=== PATIENT | male | born 1970 ===

== ENCOUNTER 2021-09-22 23:05 | Emergency (ER) | payer BC ==
[2021-09-22] MEDS ORDERED: ASPIRIN 81 MG CHEWABLE TABLET ONE (23:47)
[2021-09-23 00:52] LABS: Absolute Lymphocytes (CBC) 1.9 K/uL (0.7-4.9); Lymphocytes % 31.2 % (15.3-44.8); MPV 8.7 fL (7.6-11.3); RBC Red Blood Cell Count 4.47 M/uL (4.33-5.43)
[2021-09-23 01:13] LABS: Troponin High Sensitivity 3.7 pg/mL (<58.9)
[2021-09-23 01:15] LABS: Magnesium 2.2 mg/dL (1.8-2.4); Potassium 3.9 mmol/L (3.5-5.1)
--- NOTE | 2021-09-23 02:04 | EDPHYS ---
Physician Documentation [facility] Name: Jayson Valderrama Age: 50 yrs Sex: Male : 1970 Arrival Date: 09/22/2021 Time: 23:11 Bed 4 Private MD: ED Physician Woodrow Pizarro HPI: 09/23 00:37 This 50 yrs old Male presents to ER via Ambulatory with complaints of Chest Pain. ms3 00:37 The patient or guardian reports chest pain that is located primarily in the substernal ms3 area. Onset: 1 week(s) ago. The pain does not radiate. Associated signs and symptoms: Pertinent negatives: abdominal pain, nausea, vomiting. The chest pain is described as a heaviness. Modifying factors: The symptoms are alleviated by nothing. the symptoms are aggravated by nothing. Severity of pain: At its worst the pain was mild in the emergency department the pain is unchanged. 50-year-old male with no past medical history presents for chest heaviness that began 1 week prior to arrival. Patient states his pain is a 1/10 and described as heaviness. Patient denies nausea, vomiting, sweating. Patient denies alleviating or inciting factors.. Historical: - Allergies: 09/22 23:22 No Known Allergies; ld1 - Home Meds: 23:22 Prilosec 20 mg Oral cpDR 1 cap once daily [Active]; ld1 - PMHx: 23:22 None; ld1 - PSHx: 23:22 None; ld1 - Immunization history:: Adult Immunizations up to date, Client reports receiving the 2nd dose of the Covid vaccine. - Social history:: Smoking status: Patient reports use of chewing tobacco. Patient uses alcohol, only on a social basis. ROS: 09/23 00:37 Constitutional: Negative for fever, and chills. Eyes: Negative for injury, pain, ms3 redness, and discharge, ENT: Negative for injury, pain, and discharge, Respiratory: Negative for shortness of breath, cough, wheezing, and pleuritic chest pain, Abdomen/GI: Negative for abdominal pain, nausea, vomiting, diarrhea, and constipation, Skin: Negative for injury, rash, and discoloration. Cardiovascular: Positive for chest pain. All other systems are negative. Exam: 09/22 23:26 ECG was reviewed by the Attending Physician. ms3 03/21 00:37 Constitutional: This is a well developed, well nourished patient who is awake, alert, ms3 and in no acute distress. Head/Face: Normocephalic, atraumatic. Eyes: Pupils equal round and reactive to light, extra-ocular motions intact. Lids and lashes normal. Conjunctiva and sclera are non-icteric and not injected. Periorbital areas with no swelling, redness, or edema. Neck: Trachea midline, no cervical lymphadenopathy. Supple, full range of motion without nuchal rigidity, or vertebral point tenderness. No Meningismus. Chest/axilla: Normal chest wall appearance and motion. Nontender with no deformity. Cardiovascular: Regular rate and rhythm with a normal S1 and S2. No gallops, murmurs, or rubs. Normal PMI, no JVD. No pulse deficits. Respiratory: Lungs have equal breath sounds bilaterally, clear to auscultation and percussion. No rales, rhonchi or wheezes noted. No increased work of breathing, no retractions or nasal flaring. Abdomen/GI: Soft, non-tender, with normal bowel sounds. No distension or tympany. No guarding or rebound. No evidence of tenderness throughout. Skin: Warm, dry with normal turgor. Normal color with no rashes, no lesions, and no evidence of cellulitis. MS/ Extremity: Pulses equal, no cyanosis. Neurovascular intact. Full, normal range of motion. Psych: Awake, alert, with orientation to person, place and time. Behavior, mood, and affect are within normal limits. Vital Signs: 09/22 23:21 BP 123 / 87; Pulse 71; Resp 18; Temp 97.9(TE); Pulse Ox 97% on R/A; Weight 115.67 kg; ld1 Height 6 ft. 1 in. (185.42 cm); Pain 1/10; 23:55 BP 138 / 92; Pulse 78; Resp 16; Pulse Ox 99% on R/A; tw5 09/23 02:23 BP 146 / 86; Pulse 64; Resp 17; Pulse Ox 100% on R/A; Pain 0/10; tw5 09/22 23:21 Body Mass Index 33.64 (115.67 kg, 185.42 cm) ld1 MDM: 00:12 Patient medically screened. ms3 00:37 Differential diagnosis: abnormal EKG, acute myocardial infarction, coronary artery ms3 disease. 02:04 HEART Score: History: Slightly Suspicious (0), ECG: Normal (0), Age: > 45 and < 65 ms3 years (1), Risk Factors: No Risk Factors Known (0), Troponin: < or = 1 x Normal Limit (0), Total Score = 1. The patient was given aspirin in the Emergency Department. Data reviewed: vital signs, nurses notes, lab test result(s), EKG, radiologic studies. 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 09/22 23:38 Order name: Basic Metabolic Panel ms3 09/22 23:38 Order name: CBC with Diff ms3 09/22 23:38 Order name: Magnesium ms3 09/22 23:38 Order name: Troponin HS ms3 09/22 23:38 Order name: Basic Metabolic Panel; Complete Time: 01:36 EDMS 09/22 23:38 Order name: CBC with Automated Diff; Complete Time: 01:36 EDMS 09/22 23:25 Order name: EKG; Complete Time: 23:25 ld1 09/22 23:25 Order name: EKG - Nurse/Tech; Complete Time: 23:25 ld1 09/22 23:38 Order name: XRAY Chest (1 view) ms3 09/22 23:38 Order name: Cardiac monitoring; Complete Time: 00:07 ms3 09/22 23:39 Order name: Magnesium; Complete Time: 01:36 EDMS 09/22 23:39 Order name: Troponin High Sensitivity; Complete Time: 01:36 EDMS 09/22 23:38 Order name: IV Saline Lock; Complete Time: 00:07 ms3 09/22 23:38 Order name: Labs collected and sent; Complete Time: 00:06 ms3 09/22 23:38 Order name: O2 Per Protocol; Complete Time: 00:06 ms3 09/22 23:38 Order name: O2 Sat Monitoring; Complete Time: 00:07 ms3 EC/20 23:26 Rate is 68 beats/min. Rhythm is regular. QRS [place] is Normal. [place] interval is normal. ms3 Clinical impression: NSR with supraventricular complexes. Interpreted by me. Administered Medications: 23:54 Not Given (Other Intervention Used): Aspirin Chewable Tablet 324 mg PO once; 81 mg tw5 tablets x 4 09/23 00:01 Drug: Aspirin Chewable Tablet 81 mg Route: PO; tw5 02:17 Follow up: Response: No adverse reaction tw5 Disposition Summary: 09/23/21 02:03 Discharge Ordered Location: Home ms3 Problem: new ms3 Condition: Stable ms3 Diagnosis - Chest pain, unspecified ms3 - renal insufficiency ms3 - Elevated blood-pressure reading, without diagnosis of hypertension ms3 Followup: ms3 - With: Carlos Jernigan MD - When: 1 - 2 days - Reason: Re-evaluation by your physician Discharge Instructions: - Discharge Summary Sheet ms3 - Nonspecific Chest Pain, Adult ms3 Forms: - Medication Reconciliation Form ms3 - Thank You Letter ms3 - Antibiotic Education ms3 - Prescription Opioid Use ms3 Signatures: Dispatcher [employer] EDMS Woodrow Pizarro DO DO ms3 Elizabeth Martinez RN RN ld1 Lashonda Shook tw5 Corrections: (The following items were deleted from the chart) 09/22 23:24 23:22 Home Meds: None; ld1 ld1
--- NOTE | 2021-09-23 02:04 | ER ---
Nurse's Notes [facility] Name: Jayson Valderrama Age: 50 yrs Sex: Male : 1970 Arrival Date: 09/22/2021 Time: 23:11 Bed 4 Private MD: Diagnosis: Chest pain, unspecified;renal insufficiency;Elevated blood-pressure reading, without diagnosis of hypertension Presentation: 09/22 23:21 Chief complaint: Patient states: Small chest pains for about a week. Tonight I began ld1 feeling full, pressure, tightness in my chest. Coronavirus screen: At this time, the client does not indicate any symptoms associated with coronavirus-19. Ebola Screen: No symptoms or risks identified at this time. Initial Sepsis Screen: Does the patient meet any 2 criteria? No. Patient's initial sepsis screen is negative. Does the patient have a suspected source of infection? No. Patient's initial sepsis screen is negative. Risk Assessment: Do you want to hurt yourself or someone else? Patient reports no desire to harm self or others. Onset of symptoms was September 22, 2021. 23:21 Method Of Arrival: Ambulatory ld1 23:21 Acuity: YAMINI 3 ld1 Triage Assessment: 23:24 General: Appears in no apparent distress. comfortable, Behavior is calm, cooperative, ld1 appropriate for age. Pain: Complains of pain in chest Pain does not radiate. Pain currently is 1 out of 10 on a pain scale. Quality of pain is described as tingling. Neuro: Level of Consciousness is awake, alert, obeys commands, Oriented to person, place, time, situation. Cardiovascular: Capillary refill < 3 seconds Patient's skin is warm and dry. Respiratory: Airway is patent Respiratory effort is even, unlabored. GI: Abdomen is flat, non-distended. : No signs and/or symptoms were reported regarding the genitourinary system. Derm: No signs and/or symptoms reported regarding the dermatologic system. Musculoskeletal: No signs and/or symptoms reported regarding the musculoskeletal system. Historical: - Allergies: 23:22 No Known Allergies; ld1 - Home Meds: 23:22 Prilosec 20 mg Oral cpDR 1 cap once daily [Active]; ld1 - PMHx: 23:22 None; ld1 - PSHx: 23:22 None; ld1 - Immunization history:: Adult Immunizations up to date, Client reports receiving the 2nd dose of the Covid vaccine. - Social history:: Smoking status: Patient reports use of chewing tobacco. Patient uses alcohol, only on a social basis. Screenin:55 Abuse screen: Denies threats or abuse. Denies injuries from another. Nutritional tw5 screening: No deficits noted. Tuberculosis screening: No symptoms or risk factors identified. Fall Risk None identified. Assessment: 23:52 General: Reports "I was having chest pain, I already took three baby aspirins before tw5 coming here. I heard that is what you are suppose to do if you think you are having a heart attack.". 23:55 General: Reports "For the past year I just haven't felt myself. When I get done with my tw5 workout I just dont feel as good as I used to. For the past week I have been having this heaviness in my chest with some pains. Another thing is a I feel a tingling in my hands.". Cardiovascular:. 09/23 02:23 Pain: Denies pain. tw5 02:24 Pain: Pain began 30 min ago. tw5 Vital Signs: 09/22 23:21 BP 123 / 87; Pulse 71; Resp 18; Temp 97.9(TE); Pulse Ox 97% on R/A; Weight 115.67 kg; ld1 Height 6 ft. 1 in. (185.42 cm); Pain 1/10; 23:55 BP 138 / 92; Pulse 78; Resp 16; Pulse Ox 99% on R/A; tw5 09/23 02:23 BP 146 / 86; Pulse 64; Resp 17; Pulse Ox 100% on R/A; Pain 0/10; tw5 09/22 23:21 Body Mass Index 33.64 (115.67 kg, 185.42 cm) ld1 ED Course: 09/22 23:11 Patient arrived in ED. es 23:22 Triage completed. ld1 23:24 Arm band placed on right wrist. ld1 23:37 Woodrow Pizarro DO is Attending Physician. ms3 23:38 Anderson Harvey, RN is Primary Nurse. as6 23:55 Patient has correct armband on for positive identification. Placed in gown. Bed in low tw5 position. Call light in reach. Side rails up X 1. monitoring analyst on. Pulse ox on. NIBP on. Door closed. Noise minimized. Moved to private room. Verbal reassurance given. 09/23 00:07 Awaiting lab results. tw 00:07 Troponin HS Sent. 00:07 Magnesium Sent. tw 00: CBC with Diff Sent. 00:07 Basic Metabolic Panel Sent. 00:07 Troponin High Sensitivity Sent. : CBC with Automated Diff Sent. 00: Magnesium Sent. 00: Basic Metabolic Panel Sent. 00:07 Initial lab(s) drawn, by me, sent to lab. Inserted saline lock: 20 gauge in right tw5 antecubital area, using aseptic technique. Blood collected. Patient maintains SpO2 saturation greater than 95% on room air. 00:32 Lab(s) recollected, by me, sent to lab. tw 00:38 XRAY Chest (1 view) In Process Unspecified. EDMS 02:00 Carlos Jernigan MD is Referral Physician. ms3 02:23 No provider procedures requiring assistance completed. IV discontinued, intact, tw5 bleeding controlled, No redness/swelling at site. Pressure dressing applied. Administered Medications: 09/22 23:54 Not Given (Other Intervention Used): Aspirin Chewable Tablet 324 mg PO once; 81 mg tw5 tablets x 4 09/23 00:01 Drug: Aspirin Chewable Tablet 81 mg Route: PO; tw5 02:17 Follow up: Response: No adverse reaction tw5 Outcome: 02:03 Discharge ordered by . ms3 02:23 Discharged to home ambulatory, with family. tw5 02:23 Condition: good 02:23 Discharge instructions given to patient, family, Instructed on discharge instructions, follow up and referral plans. Demonstrated understanding of instructions, follow-up care. 02:24 Patient left the ED. tw5 Signatures: Dispatcher [employer] EDHetal Aguilar Marcus, DO DO ms3 Elizabeth Martinez, UYEN RN ld1 Lashonda Shook tw5 Anderson Harvey RN RN as6 Corrections: (The following items were deleted from the chart) 09/22 23:24 23:22 Home Meds: None; rich1 rich1
[2021-09-23 05:07] VITALS: TEMP 97.9
[2021-09-23 05:09] VITALS: BP 146/86; O2SAT 100
--- NOTE | 2021-09-23 08:20 | EKG ---
Test Date: 2021-09-22 Test Time: 23:26:20 Historiographer: CALVIN MEASUREMENT RESULTS: Intervals: Rate: 68 AR: 156 QRSD: 82 QT: 398 QTc: 423 [place]: P: 43 AR: 156 QRS: 42 T: -6 INTERPRETIVE STATEMENTS: Sinus rhythm with premature supraventricular complexes Low voltage QRS Borderline ECG No previous ECG available for comparison Electronically Signed On 09-23-21 08:19:20 CDT by James Stallings
--- NOTE | 2021-09-23 13:35 | RAD REPORT ---
EXAM DESCRIPTION: RAD - Chest Single View - 09/23/2021 12:38 am CLINICAL HISTORY: 50 years, Male, CHEST PAIN COMPARISON: None. FINDINGS: Single view of the chest was obtained portable. No prior films are available for compariso n. External EKG leads within the [id number] limits diagnosis. The cardiomediastinal silhouette dem onstrate to be unremarkable. The heart is not enlarged. The thoracic aorta is unremarkable. The pul monary vasculature is normal distribution. There is no evidence for pneumothorax. Costophrenic angles are sharp. No areas of consolidation or masses are seen. The rest of the soft tissue and bony st ructures demonstrate to be unremarkable. IMPRESSION: NO ACUTE CARDIOPULMONARY DISEASE SEEN. Electronically signed by: Gio Barry MD 09/23/2021 12:49 AM CDT Due to temporary technical issues with the PACS/Fluency reporting system, reports are being signed by the in house radiologist without review as a courtesy to ensure prompt reporting. The interpreting r adiologist is fully responsible for the content of the report.
== END 2021-09-23 02:24 | disposition home or self-care (01) ==
LOC: ER 23:05
DX: R07.9 Chest pain, unspecified (principal); R03.0 Elevated blood-pressure reading, without diagnosis of hypertension; N28.9 Disorder of kidney and ureter, unspecified; F17.220 Nicotine dependence, chewing tobacco, uncomplicated
CPT/HCPCS: 36415; 71045; 80048; 83735; 84484; 85025; 93005; 99285